=== PATIENT | male | born 1965 | race Caucasian/White ===

== ENCOUNTER 2021-12-31 03:38 | Emergency (ER) | payer SELFPAY ==
[2021-12-31] MEDS ORDERED: Sodium Chloride 0.9% 100 ML BAG FS ONE (03:39)
[2021-12-31] MEDS ORDERED: Iopamidol 370 76% 125 ML VIAL FS ONE (03:39)
[2021-12-31 04:19] LABS: ALT (SGPT) 14 U/L (8-55); AST (SGOT) 10 U/L (5-34); Albumin 3.5 g/dL (3.5-5.0); Alkaline Phosphatase 57 U/L (40-110); Anion Gap 16 mmol/L (10-20); BUN (Urea Nitrogen) 20 mg/dL (8.4-25.7); Bilirubin, Total 0.5 mg/dL (0.2-1.2); Calc. Creatinine Clearance 0 mL/min (70-130); Calcium 8.5 mg/dL (7.8-10.44); Carbon Dioxide 17 mmol/L (22-29); Chloride 109 mmol/L (98-107); Globulin 2.5 g/dL (2.4-3.5); Glucose 211 mg/dL (70-105); Potassium 3.8 mmol/L (3.5-5.1); Sodium 138 mmol/L (136-145)
[2021-12-31 04:23] LABS: Band 14 % (5-11); Eosinophils 3 % (0-10); Hemoglobin 11.5 g/dL (14.0-18.0); Lymphocytes 7 % (21-51); MDiff Complete? YES; Mean Corpuscular HGB CONC 32.6 g/dL (32.0-36.0); Mean Corpuscular Hemoglobin 28.4 pg (27.0-31.0); Mean Corpuscular Volume 86.9 fL (78.0-98.0); Monocytes 10 % (0-10); Neutrophil 66 % (42-75); Platelet Count 341 thou/uL (130-400); RBC Distribution Width 12.8 % (11.5-14.5); RBC Morphology Normal; Red Blood Cell (RBC) Count 4.06 mill/uL (4.70-6.10); White Blood Cell (WBC) Count 23.2 thou/uL (4.8-10.8)
[2021-12-31 04:55] LABS: INR-International Normal Ratio 1.1
[2021-12-31 04:56] LABS: PTT 29.7 sec (22.9-36.1)
[2021-12-31] MEDS ORDERED: Fentanyl 100 MCG/2 ML VIAL ONE ×3 (05:11→05:31)
[2021-12-31] MEDS ORDERED: Ketamine 50 MG/ML (10ML VIAL) ONE (05:31)
[2021-12-31] MEDS ORDERED: Phenylephrine 10 MG/ML VIAL ONE (05:32)
[2021-12-31] MEDS ORDERED: Albumin 5% 500 ML ONE (05:32)
[2021-12-31] MEDS ORDERED: Nitroglycerin 50 MG/250 ML BOT 250 ML ONE (05:32)
== END 2021-12-31 04:47 | disposition short-term general hospital (02) ==
LOC: MADERS 03:38
DX: I71.3 Abdominal aortic aneurysm, ruptured (principal); F17.210 Nicotine dependence, cigarettes, uncomplicated
CPT/HCPCS: 36430; 71275; 74174; 74176; 80053; 83605; 85025; 85610; 85730; 86850; 86900; 86901; J2370; J3010; P9016; P9045; Q9967